=== PATIENT | male | born 1965 | race Caucasian/White ===

== ENCOUNTER 2019-03-01 07:14 | Emergency (ER) | payer BC ==
[2019-03-01] MEDS ORDERED: IPRATROPIUM/ALBUTEROL (0.5MG/3MG) NEB INH ONE (07:21)
[2019-03-01] MEDS ORDERED: 0.9 % SODIUM CHLORIDE 1,000 ML BAG IV ONE (07:21)
[2019-03-01] MEDS ORDERED: AZITHROMYCIN 500 MG TABLET PO ONE (07:21)
[2019-03-01] MEDS ORDERED: IBUPROFEN 600 MG TABLET PO ONE (07:22)
--- NOTE | 2019-03-01 07:28 | Emergency Department Record ---
History of Present Illness - General Chief Complaint: Shortness of breath Stated Complaint: CHRISSIE Time Seen by Provider: 03/01/19 07:20 Source: Patient, Family Mode of Arrival: Ambulatory Limitations: No limitations - History of Present Illness Initial Comments: 53 yo male presents with cough with green to brownish sputum. The onset was Monday. The cough started Monday with the first productive sputum was yesterday. He is taking Advil cough and cold without minimal help. He has a low grade fever as well. He denies chest pain. No leg pain or edema. He is not a smoker. No underlying chronic lung conditions. He reports he has had pneumonia at least twice. He is treated for HTN by his PCP. No other current symptoms. No nausea, vomiting, diarrhea. No rash. Denies recent illness. PCP is Hankenson. SAX[place] Complaint: Cough, Shortness of breath Onset/Timin -: Days(s) (2) Severity: Moderate Severity scale (1-10): 4 Quality: Aching Consistency: Constant Improves With: Nothing Worsens With: Nothing Known History Of: Recurrent pneumonia, Other Associated Symptoms: Cough - Related Data Home Oxygen Therapy: No Previous Rx's Medication Instructions Recorded Azithromycin [Zithromax] 250 mg PO DAILY #4 tablet 03/01/19 Benzonatate [Tessalon] 1 cap PO Q8H PRN #15 cap 03/01/19 Prednisone [Prednisone 20Mg] 20 mg PO BID #10 tab 03/01/19 Allergies Allergy/AdvReac Type Severity Reaction Status Date / Time acetaminophen Allergy hives Verified 03/01/19 07:21 Travel Screening - Travel/Exposure Within Last 30 Days Have you traveled within the last 30 days?: No Review of Systems Constitutional: Reports: Chills, Fever, Weakness Eyes: Denies: Eye discharge ENT: Denies: Congestion, Dental pain, Ear pain, Epistaxis, Throat pain Respiratory: Reports: Cough, Dyspnea. Denies: Hemoptysis, Stridor, Wheezes Cardiovascular: Denies: Chest pain, Edema, Palpitations, Syncope Endocrine: Denies: Fatigue Gastrointestinal: Denies: Abdominal pain, Diarrhea, Nausea, Vomiting Genitourinary: Denies: Discharge, Dysuria Musculoskeletal: Denies: Arthralgia, Back pain, Myalgia Skin: Denies: Bruising, Change in color, Rash Neurological: Denies: Headache, Numbness, Weakness Psychiatric: Denies: Anxiety Hematological/Lymphatic: Denies: Easy bleeding, Easy bruising Past Medical History - SOCIAL HISTORY Smoking Status: Never smoker - RESPIRATORY Hx Respiratory Disorders: Yes Hx Sleep Apnea: Yes Hx of CPAP: Yes - CARDIOVASCULAR Hx Cardio Disorders: Yes Hx Hypertension: Yes - NEURO Hx Neuro Disorders: No - GI Hx GI Disorders: No - Hx Genitourinary Disorders: No - ENDOCRINE Hx Endocrine Disorders: No - MUSCULOSKELETAL Hx Musculoskeletal Disorders: No - PSYCH Hx Psych Problems: No - HEMATOLOGY/ONCOLOGY Hx Hematology/Oncology Disorders: No Family Medical History Any Significant Family History?: No Physical Exam - General General Appearance: Alert, Oriented x3, Cooperative, No acute distress Limitations: No limitations - Head Head exam: Atraumatic, Normal inspection - Eye Eye exam: Normal appearance, PERRL. negative: Conjunctival injection, Scleral icterus - ENT ENT exam: Normal exam, Mucous membranes moist Ear exam: Normal external inspection Nasal Exam: Normal inspection Mouth exam: Normal external inspection - Neck Neck exam: Normal inspection, Full ROM. negative: Lymphadenopathy, Tenderness - Respiratory Respiratory exam: Decreased breath sounds (Left greater than right), Rhonchi, Wheezes. negative: Normal lung sounds bilaterally, Respiratory distress - Cardiovascular Cardiovascular Exam: Normal rhythm, Normal heart sounds, Tachycardia Peripheral Pulses: 2+: Radial (R), Radial (L) - GI/Abdominal GI/Abdominal exam: Soft. negative: Tenderness - Rectal Rectal exam: Deferred - exam: Deferred - Extremities Extremities exam: Normal inspection. negative: Calf tenderness, Pedal edema, Tenderness - Back Back exam: Denies: CVA tenderness (R), CVA tenderness (L) - Neurological Neurological exam: Alert, Oriented X3 - Psychiatric Psychiatric exam: Normal affect, Normal mood. negative: Agitated, Anxious - Skin Skin exam: Dry, Intact, Normal color, Warm Course Vital Signs 03/01/19 07:16 Temperature 100.8 F H Pulse Rate 127 H Respiratory 22 Rate Blood Pressure 156/119 Pulse Ox 95 - Reevaluation(s) Reevaluation #1: 03/01/19 07:35 The patient was rechecked after the Duoneb He subjectively feels improved. 96% on RA. Given his clinical presentation is consistent with infection he was given rocephin and azithromycin as well He reports he has used breathing treatments with prior pneumonia with improvement in the past but no RAD history as a formal diagnosis. 03/01/19 08:04 The CBC was reviewed. No acute changes. The CXR was read and reviewed. No acute pathology. 03/01/19 08:24 No acute changes on the BMP 03/01/19 09:03 The patient is doing much better. HR 94. 95-96% on Room air. Very comfortable We discussed the normal labs and CXR. Temperature 101 but will recheck. 03/01/19 09:09 RT will teach and dispense and Albuterol MDI with a spacer The patient is relaxed. Normal work of breathing. We discussed the results, plan for DC home, we discussed returning anytime to the ED for a recheck if he has any concerns with his breathing or cough. 03/01/19 09:24 Temperature 99.6 at DC Medical Decision Making - Lab Data Result diagrams: 03/01/19 07:30 03/01/19 07:30 Disposition Disposition: Discharge Clinical Impression: Pneumonia Qualifiers: Pneumonia type: due to unspecified organism Laterality: right Lung location: middle lobe of lung Qualified Code(s): J18.1 - Lobar pneumonia, unspecified organism Disposition: Home, Self-Care Condition: (1) Good Instructions: Community Acquired Pneumonia (ED) Additional Instructions: Call your doctor for the next available follow up appointment Review this ER visit and the tests performed with your family doctor Return to the ER for a recheck if worse, any new concerns or questions, short of breath, fever not responding to Motrin Take the prescriptions provided as directed Use the inhaler 2 puffs every 4-6 hours if needed Prescriptions: Prednisone [Prednisone 20Mg] 20 mg PO BID #10 tab Benzonatate [Tessalon] 1 cap PO Q8H PRN #15 cap PRN Reason: Cough Azithromycin [Zithromax] 250 mg PO DAILY #4 tablet Forms: Patient Portal Access Time of Disposition: 09:24 Quality - Quality Measures Quality Measures: N/A - Blood Pressure Screening Does Patient Have Any of the Following: Active Dx of HTN Blood Pressure Classification: Hypertensive Reading Systolic Measurement: 156 Diastolic Measurement: 119 Screening for High Blood Pressure: Patient Exclusion, Hx of HTN [[id number]]
[2019-03-01 07:43] LABS: ABSOLUTE NEUTROPHIL COUNT 7.99; BASO % 0.2 % (0-6); EOS % 0.7 % (0-6); HEMATOCRIT 45.8 % (42.0-52.0); HEMOGLOBIN 15.5 gm/dl (14.0-18.0); LYMPH % 5.7 % (16-45); MEAN CELL VOLUME 85.3 fl (81-97); MEAN CORPUSCULAR HEMOGLOBIN 28.9 pg (27-33); MEAN CORPUSCULAR HGB CONC 33.8 g/dl (32-36); MEAN PLATELET VOLUME 9.9 fl (7.4-10.4); MONO % 6.6 % (0-9); PLATELET COUNT 171 K/uL (130-400); RED BLOOD COUNT 5.37 M/uL (4.40-5.70); RED CELL DISTRIBUTION WIDTH 12.4 % (11.5-14.5); WHITE BLOOD COUNT W/O DIFF 9.2 K/uL (4.2-12.2)
[2019-03-01 08:10] LABS: BLOOD UREA NITROGEN 10 mg/dL (6-20); EST GLOMERULAR FILTRATION RATE > 60 mL/min
[2019-03-01 08:12] LABS: GLUCOSE,RANDOM 135 mg/dL (74-109)
[2019-03-01] MEDS ORDERED: METHYLPREDNISOLONE PF 125MG/VIAL IM ONE (08:25)
[2019-03-01] MEDS ORDERED: 0.9 % SODIUM CHLORIDE 1000ML 1,000 ML IV ONE (08:31)
[2019-03-01] MEDS ORDERED: ALBUTEROL HFA 8 GM INHALER INH ONE (09:07)
--- NOTE | 2019-03-01 14:18 | RADIOLOGY REPORT ---
EXAM: CHEST, TWO VIEWS HISTORY: COUGH, FEVER, AND DIFFICULTY BREATHING SINCE YESTERDAY. TECHNIQUE: PA and lateral upright views of the chest were obtained. Comparison: None. FINDINGS: There are low lung volumes. The heart, mediastinum, and pulmonary vasculature are normal. There is mild atelectasis at the medial left lung base. The lungs are otherwise clear. There are no visible acute infiltrates or effusions. There is no pneumothorax. The bones appear intact. There is minor chronic anterior wedging of the lower thoracic vertebral bodies. IMPRESSION: 1. LOW LUNG VOLUMES. 2. MINOR ATELECTASIS AT THE MEDIAL LEFT LUNG BASE. 3. NO ACUTE CHEST PATHOLOGY. JOB NUMBER: [id number] MTDD
== END 2019-03-01 09:37 | disposition home or self-care (01) ==
LOC: ER 07:14
DX: J18.1 Lobar pneumonia, unspecified organism (principal); R06.02 Shortness of breath; I10 Essential (primary) hypertension
CPT/HCPCS: 71046; 80048; 83605; 85027; 94640; 94664; 96372; 99284; J2930; J7030